=== PATIENT | female | born 1950 | race Caucasian/White ===

== ENCOUNTER → 2017-09-26 07:17 | Outpatient (CLI) | payer MEDICARE, OTHER, SELFPAY ==
--- NOTE | 2017-09-26 07:32 | NM_ITS ---
Myoview SPECT MYOCARDIAL PERFUSION SCAN, REST AND STRESS: EXERCISE STRESS [facility] REVIEW QGS EF AND WALL MOTION EVALUATION: QPS - PERFUSION EVALUATION HISTORY: Short of breath nausea. Short of breath CAD hypertension history of chest pain.. . Catarino Montalvo exercise stress comments: no chest pain with stress DOSE: 10.07 mCi mCi technetium 99m Myoview intravenously at rest subsequent rest images.. 32.5 mCi mCi technetium 99m Myoview injected following the intravenous ministration of 0.4 mg of Lexiscan. Resting blood pressure is 145/76. Stress blood pressure decreased to 122/64. With vasodilatation and an similar BP at at 1 minute recovery.. FINDINGS: Ejection fraction is calculated to be 68%. Concentric wall thickening with notable or significant areas of hypokinesis/dyskinesis. No fixed or significant appearing reversible perfusion defects are identified involving left myocardium. . There is slightly more evident activity at the lateral wall on rest than stress but this does not appear to be a significant perfusion abnormality Patient concentric wall thickening observed.. Reversible score is 0 at all segments. On [facility] review. . SSS = 0 sRS = 0. SDS = 0 IMPRESSION: -------- No fixed nor significant reversible perfusion defects involving left myocardium. 68% left ventricular ejection fraction with concentric wall thickening. No unremarkable hypokinesis/dyskinesis.
--- NOTE | 2017-09-26 07:53 | CA_ITS ---
PROCEDURE: 2-D M-mode and color Doppler study INDICATIONS FOR THE TEST: Chest painX COPD Heart Murmur Tobacco SmokingX Palpitations Fatigue Syncope Edema HypertensionXDiabetes Mellitus Rheumatic Fever SOB ANDERSON Obesity HyperlipidemiaX Family History HD Additional History CAD PATIENT INFORMATION HEIGHT: 64 WEIGHT:156 GENDER: Female B/P:138/78 2-D/M-MODE INTERPRETATION: 2-D MEASUREMENTS OBSERVED VALUES IN CMS Right Ventricular Dimension (RVDd) 2.6 Interventricular Septum (Thickness)(IVsd) 1.3 Left Ventricular Internal Dimensions(LVIDd) 5.6 Left Ventricular Posterior Wall (Thickness)(LVPWd) 1.3 Aortic Root 2.8 Aortic Cusp Separation 1.7 Left Atrial Dimensions (LAD) 4.2 2D 1. Left atrium is mildly enlarged, left ventricle is normal size, there is mild concentric left ventricular hypertrophy present, visually estimated ejection fraction 55% with no obvious regional wall motion abnormality. 2. The right atrium and right ventricle are normal size and contractility. 3. The aortic valve is minimally thickened and fibrosed. 4. The mitral and tricuspid valve leaflets are minimally thickened. 5. The pulmonic valve is poorly visualized. 6. There is small circumferential pericardial effusion noted. DOPPLER INTERROGATION: Doppler interrogation of the aortic, mitral and tricuspid valvular presence of mild aortic, mild mitral and tricuspid regurgitation, tricuspid regurgitant jet velocity is insufficient for calculation of the right ventricular systolic pressure, grade 1 diastolic dysfunction seen with tissue Doppler evidence of raised left atrial pressure. CONCLUSION: 1. Mildly enlarged left atrium, normal left ventricular size, mild concentric left ventricular hypertrophy, visually estimated ejection fraction 55% with no obvious regional wall motion abnormality, grade 1 diastolic dysfunction seen with tissue Doppler evidence of raised left atrial pressure. 2. Mild aortic, mild mitral and tricuspid regurgitation. 3. Small circumferential pericardial effusion noted.
--- NOTE | 2017-09-26 08:10 | HMH.ITSHM ---
NITRO AMLODIPINE CLOPIDOFREL ESTRADIOL CARVEDILOL ZANTAC GABAPENTIN CRESTOR FEXOFENADINE TRAMADOL ALTERIL
--- NOTE | 2017-09-26 10:14 | XR_ITS ---
XR chest 2V Ordering Physician: Sravan Sylvester MD Patient Age: 67 years: Female HISTORY: ITS.REASON: CHEST PAIN TECHNIQUE: PA and lateral chest COMPARISON : Also CT abdomen which includes lung bases from November 2015. Period portable chest November 2015 FINDINGS Slight coarsening markings bilaterally reflecting some minor chronic changes. Today's higher contrast lateral film and frontal projection accentuates markings. Upper normal density is seen posterior to the hilar region of the lateral film but I believe this is likely stable and due to overlapping shadows including scapula however symptoms should persist a follow-up 2 view chest would be encouraged The heart is upper normal in size with rebeka and mediastinal structures satisfactory. Upper lung moody appear clear chest wall and T-spine appears satisfactory. IMPRESSION Nothing definitely acute Mild chronic changes . Borderline cardiomegaly. . However If symptoms persist consider follow-up . IMPRESSION:
== END ==
PROVIDERS: PCP Emergency Medicine; Visit Provider Internal Medicine
DX: R07.9 Chest pain, unspecified (principal)
CPT/HCPCS: 71046; 78452; 93017; 93306; A9502; J2785

== ENCOUNTER → 2017-10-21 10:17 | Outpatient (CLI) | payer MEDICARE, SELFPAY ==
[2017-10-21 14:28] LABS: Basophils # 0.1 K/mm3 (0-0.2); Basophils % 0.9 % (0.1-2.0); Eosinophils # 0.2 K/mm3 (0.0-0.4); Eosinophils % 2.5 % (0.1-12.0); Hematocrit 48.7 % (37.0-47.0); Hemoglobin 15.6 g/dL (12.2-16.2); Lymphocytes # 2.6 K/mm3 (0.7-4.5); Mean Corpuscular Hemoglobin 29.6 pg (27.0-31.2); Mean Corpuscular Volume 92.5 fl (81-99); Mean Platelet Volume 8.1 fl (7.4-10.4); Monocytes # 0.6 K/mm3 (0.1-1.0); Monocytes % 5.7 % (1.7-9.3); Neutrophils # 6.3 K/mm3 (1.8-7.8); Platelet Count 318 K/mm3 (142-424); Red Blood Count 5.26 M/mm3 (4.20-5.40); Red Cell Distribution Width 14.6 % (11.5-17.5); White Blood Count 9.8 K/mm3 (4.8-10.8)
[2017-10-21 14:57] LABS: Alanine Aminotransferase 13 U/L (12-78); Albumin Level 3.6 gm/dL (3.4-5.0); Albumin/Globulin Ratio 0.9 (1.1-1.8); Alkaline Phosphatase 108 U/L (46-116); Anion Gap 14.7 mEq/L (5-15); Aspartate Amino Transferase 9 U/L (15-37); Bilirubin,Total 0.2 mg/dL (0.2-1.0); Blood Urea Nitrogen 23 mg/dL (7-18); Calcium 8.5 mg/dL (8.5-10.1); Carbon Dioxide 27 mmol/L (21.0-32.0); Chloride 104 mmol/L (98-107); Creatinine,Serum 2.16 mg/dL (0.55-1.02); Estimated Glomerular Filt Rate 23 ml/min (>60); GFR (African American) 28 ML/MIN (>60); Globulin 3.8 gm/dl (1.3-3.2); Glucose 102 mg/dL (74-106); Potassium 4.7 mmoL/L (3.5-5.1); Sodium 141 mmol/L (136-145); Thyroid Stimulating Hormone 1.01 uIU/ml (0.358-3.740); Total Protein,Serum 7.4 gm/dL (6.4-8.2)
== END ==
PROVIDERS: Visit Provider Emergency Medicine
DX: M54.9 Dorsalgia, unspecified (principal); R53.83 Other fatigue
CPT/HCPCS: 80053; 84443; 85025

== ENCOUNTER → 2018-02-09 08:47 | Outpatient (CLI) | payer MEDICARE, OTHER, SELFPAY ==
--- NOTE | 2018-02-09 08:48 | MM_ITS ---
MM Dig screening mamm BI w/CAD ORDERING PHYSICIAN : Dominic Simon MD PATIENT AGE: 67 years GENDER: Female COMPARISON: January 2014 mammogram INDICATION: ITS.REASON: screening no hormones no new complaints Family history. Paternal aunt with breast cancer TECHNIQUE: Standard CC and MLO images were obtained. R2 CAD reviewed. FINDINGS: Moderate breast density CAD computer review highlights no areas of concern . Slight nodular character bilaterally with likely mild ductal prominence pattern retroareolar region,... But no discrete dominant mass nor suspicious calcifications in either breast. No architectural distortion RIGHT BREAST: LEFT BREAST:There are some scattered areas of minimal nodularity these seem compatible with a previous study. I would recommend a bilateral follow-up in one year in this patient IMPRESSION: No significant new areas of concern. Bilateral follow-up in one year should be increased and emphasized Moderately dense slightly nodular breast there is slight decreases sensitivity mammography BI-RADS Category: 2 Benign Finding(s) RECOMMENDED FOLLOW-UP: 1YR 1 YEAR FOLLOW-UP (A letter has been sent to the patient regarding results of the study.)
--- NOTE | 2018-02-09 08:48 | US_ITS ---
US aorta HISTORY: ITS.REASON: AAA COMPARISON: 11/22/2015 FINDINGS: There is fusiform dilatation of the mid and lower abdominal aorta measuring up to 4.7 cm AP. At the level of the umbilicus the aorta measures 3.9 x 4.2 cm. Proximal common iliac arteries are unremarkable. Atherosclerotic plaque is present within the aorta. IMPRESSION: Cuneiform abdominal aortic aneurysm measuring up to 4.7 centimeters in AP dimension. This previously measured [address] scan suggesting an overall increase in size of the aneurysm. CT of the abdomen may be of further value to confirm this finding.
--- NOTE | 2018-02-09 09:26 | US_ITS ---
US Arterial Ankle Brachial Ind History: Leg pain, claudication, peripheral vascular disease, current smoker ORDERING PHYSICIAN: Dominic Simon MD PATIENT AGE: 67 years TECHNIQUE: Segmental pressures obtained of both right and left leg. These are compared to brachial blood pressure to yield index at each level sampled including summary VERONICA. The data sheets from the procedure are available in PACS FINDINGS Rest study only performed today No prior studies available for comparison. Blood pressures reported are in millimeters mercury. RIGHT LEG VERONICA = .9. RIGHT LEG TBI=.6 Brachial BP: 160 Thigh BP: 159 Calf BP: 157 Ankle PT: 156 Ankle DP : 159 Digit =99 LEFT LEG VERONICA = .6 LEFT LEG TBI= .5 Brachial BPD: 173 Thigh BP: 120 Calf BP: 117 Ankle PT:111 Ankle DP: 120 Digit = 78 Pulses and waveforms: Diminished waveforms in the left ankle IMPRESSION: 1. Low left VERONICA of 0.6 indicating moderate arterial disease. 2. Right VERONICA at lower limits of normal. 3. The TBIs are low suggesting small vessel disease
== END ==
PROVIDERS: PCP Emergency Medicine; Visit Provider Emergency Medicine
DX: Z12.31 Encounter for screening mammogram for malignant neoplasm of breast (principal); I73.9 Peripheral vascular disease, unspecified; I71.4 Abdominal aortic aneurysm, without rupture
CPT/HCPCS: 76770; 77067; 93922

== ENCOUNTER → 2018-07-10 14:11 | Outpatient (CLI) | payer MEDICARE, SELFPAY ==
[2018-07-10 14:21] LABS: Basophils # 0.1 K/mm3 (0-0.2); Basophils % 0.9 % (0.1-2.0); Eosinophils # 0.3 K/mm3 (0.0-0.4); Eosinophils % 2.9 % (0.1-12.0); Hematocrit 45.5 % (37.0-47.0); Hemoglobin 14.8 g/dL (12.2-16.2); Lymphocytes # 2.2 K/mm3 (0.7-4.5); Lymphocytes % 20.2 % (10-50); Mean Corpuscular HGB Conc 32.6 g/dL (31.8-35.4); Mean Corpuscular Hemoglobin 30.2 pg (27.0-31.2); Mean Corpuscular Volume 92.5 fl (81-99); Mean Platelet Volume 7.6 fl (7.4-10.4); Monocytes # 0.6 K/mm3 (0.1-1.0); Monocytes % 5.4 % (1.7-9.3); Neutrophils # 7.5 K/mm3 (1.8-7.8); Neutrophils % 70.5 % (37.0-80.0); Platelet Count 344 K/mm3 (142-424); Red Blood Count 4.92 M/mm3 (4.20-5.40); Red Cell Distribution Width 14.2 % (11.5-17.5); White Blood Count 10.6 K/mm3 (4.8-10.8)
[2018-07-10 14:45] LABS: Alanine Aminotransferase 14 U/L (12-78); Albumin Level 3.3 gm/dL (3.4-5.0); Albumin/Globulin Ratio 0.8 (1.1-1.8); Alkaline Phosphatase 107 U/L (46-116); Anion Gap 18.6 mEq/L (5-15); Aspartate Amino Transferase 7 U/L (15-37); Bilirubin,Total 0.4 mg/dL (0.2-1.0); Blood Urea Nitrogen 21 mg/dL (7-18); Calcium 8.4 mg/dL (8.5-10.1); Carbon Dioxide 23 mmol/L (21.0-32.0); Chloride 104 mmol/L (98-107); Cholesterol 270 mg/dL (140-200); Creatinine,Serum 2.24 mg/dL (0.55-1.02); Estimated Glomerular Filt Rate 22 ml/min (>60); Free T4 (Free Thyroxine) 0.92 ng/dl (0.76-1.46); GFR (African American) 27 ML/MIN (>60); Globulin 3.9 gm/dl (1.3-3.2); Glucose 103 mg/dL (74-106); HDL Cholesterol 30 mg/dL (29-89); LDL Cholesterol 207 mg/dL (0-130); Potassium 4.6 mmoL/L (3.5-5.1); Sodium 141 mmol/L (136-145); Total Protein,Serum 7.2 gm/dL (6.4-8.2); Triglycerides 167 mg/dL (30-200); VLDL Cholesterol 33 mg/dL (0-40)
[2018-07-12 14:19] LABS: Vitamin D 25 Hydroxy 32.2 ng/mL (30.0-100.0)
== END ==
PROVIDERS: Visit Provider Emergency Medicine
DX: R53.83 Other fatigue (principal); I71.4 Abdominal aortic aneurysm, without rupture
CPT/HCPCS: 80053; 80061; 82652; 84439; 84443; 85025

== ENCOUNTER → 2018-07-25 13:52 | Outpatient (POV) | payer MEDICARE, SELFPAY | PROVIDERS: Visit Provider Dermatology | DX: Z00.00 Encounter for general adult medical examination without abnormal findings (principal) ==

== ENCOUNTER → 2018-08-22 07:51 | Outpatient (CLI) | payer MEDICARE, SELFPAY ==
--- NOTE | 2018-08-22 08:00 | US_ITS ---
US aorta HISTORY: Follow-up aortic aneurysm ITS.REASON: AAA COMPARISON: 02/09/2018 FINDINGS: There is fusiform dilatation of the lower abdominal aorta measuring up to 5 cm in AP dimension similar to the previous exam. There is a mild amount of intramural thrombus. Common iliac have an unremarkable appearance. IMPRESSION: No change 5 cm fusiform aneurysm of the abdominal aorta
== END ==
PROVIDERS: PCP Emergency Medicine; Visit Provider Thoracic Surgery (Cardiothoracic Vascular Surgery)
DX: I71.4 Abdominal aortic aneurysm, without rupture (principal)
CPT/HCPCS: 76770

== ENCOUNTER → 2018-11-08 07:49 | Outpatient (CLI) | payer MEDICARE, OTHER, SELFPAY ==
--- NOTE | 2018-11-08 07:52 | CA_ITS ---
PROCEDURE: 2-D M-mode and color Doppler study INDICATIONS FOR THE TEST: Chest pain COPD Heart Murmur Tobacco Smoking+ Palpitations Fatigue Syncope Edema Hypertension+Diabetes Mellitus Rheumatic Fever SOB ANDERSON+Obesity Hyperlipidemia+ Family History HD Additional History STENTS, ABN EKG, CAD, CKD, PAD PATIENT INFORMATION HEIGHT: 64 WEIGHT:154 GENDER: Female B/P:106/54 2-D/M-MODE INTERPRETATION: 2-D MEASUREMENTS OBSERVED VALUES IN CMS Right Ventricular Dimension (RVDd) 2.1 Interventricular Septum (Thickness)(IVsd) 1.5 Left Ventricular Internal Dimensions(LVIDd) 5.0 Left Ventricular Posterior Wall (Thickness)(LVPWd) 1.0 Aortic Root 3.4 Aortic Cusp Separation 2.1 Left Atrial Dimensions (LAD) 4.0 2D 1. Left atrium is mildly enlarged, left ventricle is normal size, mild concentric left ventricular hypertrophy, visually estimated ejection fraction 55% with no regional wall motion abnormality. 2. The right atrium and right ventricle are normal size and contractility. 3. The aortic valve is thickened and gastritis leaflet continue to display mobility. 4. The mitral and tricuspid valvular grossly normal. 5. The pulmonic valve is poorly visualized. 6. There is small pericardial effusion noted. DOPPLER INTERROGATION: Doppler interrogation of the aortic, mitral and tricuspid valvular presence of mild aortic, mild mitral and tricuspid regurgitation, tricuspid regurgitation jet velocity is inadequate for calculation of the right ventricular systolic pressure, grade 1 diastolic dysfunction seen without tissue Doppler evidence of raised left atrial pressure. Inferior vena cava is not well visualized CONCLUSION: 1. Mildly enlarged left atrium, normal left ventricular size, mild concentric left ventricular hypertrophy, visually estimated ejection fraction of 55% with no regional wall motion abnormality, grade 1 diastolic dysfunction seen without tissue Doppler evidence of raised left atrial pressure. 2. Mild aortic, mild mitral and tricuspid regurgitation, inferior vena cava is not well visualized. 3. Small pericardial effusion noted.
[2018-11-08 09:37] LABS: Alanine Aminotransferase 11 U/L (12-78); Albumin Level 3.4 gm/dL (3.4-5.0); Alkaline Phosphatase 103 U/L (46-116); Aspartate Amino Transferase 9 U/L (15-37); Bilirubin,Direct 0.1 mg/dL (0.0-0.2); Bilirubin,Indirect 0.2 mg/dL (0.0-0.9); Bilirubin,Total 0.3 mg/dL (0.2-1.0); Chol/HDL Ratio 10.8 (1-3.5); Cholesterol 260 mg/dL (140-200); HDL Cholesterol 24 mg/dL (29-89); LDL Cholesterol 202 mg/dL (0-130); Total Protein,Serum 7.2 gm/dL (6.4-8.2); Triglycerides 169 mg/dL (30-200); VLDL Cholesterol 34 mg/dL (0-40)
== END ==
PROVIDERS: PCP Emergency Medicine; Visit Provider Urology
DX: I71.4 Abdominal aortic aneurysm, without rupture (principal); R06.00 Dyspnea, unspecified; E78.49 Other hyperlipidemia
CPT/HCPCS: 36415; 80061; 80076; 93306

== ENCOUNTER → 2018-11-08 08:27 | Outpatient (CLI) | payer MEDICARE, OTHER, SELFPAY | PROVIDERS: Visit Provider Urology | DX: I71.4 Abdominal aortic aneurysm, without rupture (principal) | CPT/HCPCS: 36415; 80061; 80076 ==

== ENCOUNTER → 2019-04-11 08:36 | Outpatient (CLI) | payer MEDICARE, OTHER, SELFPAY ==
--- NOTE | 2019-04-11 08:51 | US_ITS ---
PROCEDURE: US AORTA CLINICAL INDICATION: AAA COMPARISON: ABDPELW/O CT ABD PELVIS W/O CONTRAST from 11/22/2015 AORTA US aorta from 08/22/2018 FINDINGS: Atherosclerotic changes are present involving the abdominal aorta. There is fusiform dilatation the mid and lower abdominal aorta measuring up to 4.6 cm not significantly changed.. The aorta tapers at the bifurcation with unremarkable common iliacs.. IMPRESSION: No change fusiform abdominal aortic aneurysm at approximately 5 cm Dictated by: Vadim Schaefer MD 04/11/2019 18:24 <Electronically signed by Vadim Schaefer MD in [place]> 04/11/2019 18:24
== END ==
PROVIDERS: PCP Emergency Medicine; Visit Provider Thoracic Surgery (Cardiothoracic Vascular Surgery)
DX: I71.4 Abdominal aortic aneurysm, without rupture (principal)
CPT/HCPCS: 76770

== ENCOUNTER → 2019-05-09 08:13 | Outpatient (CLI) | payer MEDICARE, OTHER, SELFPAY ==
[2019-05-09 11:36] LABS: Alanine Aminotransferase 10 U/L (12-78); Albumin Level 3.5 gm/dL (3.4-5.0); Alkaline Phosphatase 117 U/L (46-116); Aspartate Amino Transferase 10 U/L (15-37); Bilirubin,Direct 0.1 mg/dL (0.0-0.2); Bilirubin,Indirect 0.2 mg/dL (0.0-0.9); Bilirubin,Total 0.3 mg/dL (0.2-1.0); Chol/HDL Ratio 5.6 (1-3.5); Cholesterol 152 mg/dL (140-200); HDL Cholesterol 27 mg/dL (29-89); LDL Cholesterol 99 mg/dL (0-130); Triglycerides 128 mg/dL (30-200); VLDL Cholesterol 26 mg/dL (0-40)
== END ==
PROVIDERS: Visit Provider Nurse Practitioner Family
DX: I71.4 Abdominal aortic aneurysm, without rupture (principal); E78.5 Hyperlipidemia, unspecified; I25.10 Atherosclerotic heart disease of native coronary artery without angina pectoris
CPT/HCPCS: 36415; 80061; 80076

== ENCOUNTER → 2019-07-09 16:39 | Outpatient (CLI) | payer MEDICARE, OTHER, SELFPAY ==
[2019-07-09 17:21] LABS: Basophils # 0.1 K/mm3 (0-0.2); Basophils % 0.8 % (0.1-2.0); Eosinophils # 0.2 K/mm3 (0.0-0.4); Hematocrit 45.3 % (37.0-47.0); Hemoglobin 14.5 g/dL (12.2-16.2); Lymphocytes # 2.2 K/mm3 (0.7-4.5); Lymphocytes % 21.6 % (10-50); Mean Corpuscular HGB Conc 32.1 g/dL (31.8-35.4); Mean Corpuscular Hemoglobin 30.2 pg (27.0-31.2); Mean Platelet Volume 8.8 fl (7.4-10.4); Monocytes # 0.6 K/mm3 (0.1-1.0); Monocytes % 5.8 % (1.7-9.3); Neutrophils # 7.1 K/mm3 (1.8-7.8); Neutrophils % 69.8 % (37.0-80.0); Platelet Count 287 K/mm3 (142-424); Red Blood Count 4.81 M/mm3 (4.20-5.40); White Blood Count 10.1 K/mm3 (4.8-10.8)
[2019-07-09 17:23] LABS: Anion Gap 16.7 mEq/L (5-15); Blood Urea Nitrogen 21 mg/dL (7-18); Calcium 8.3 mg/dL (8.5-10.1); Carbon Dioxide 24 mmol/L (21.0-32.0); Chloride 104 mmol/L (98-107); Creatinine,Serum 2.23 mg/dL (0.55-1.02); Estimated Glomerular Filt Rate 22 ml/min (>60); GFR (African American) 27 ML/MIN (>60); Glucose 99 mg/dL (74-106); Potassium 4.7 mmoL/L (3.5-5.1); Sodium 140 mmol/L (136-145)
== END ==
PROVIDERS: Visit Provider Emergency Medicine
DX: G25.81 Restless legs syndrome (principal); I71.4 Abdominal aortic aneurysm, without rupture
CPT/HCPCS: 80048; 85025